=== PATIENT | female | born 1975 | race African-American/Black ===

== ENCOUNTER 2021-04-12 13:01 | Emergency (ER) | payer OTHER ==
[~2021-04-12] VITALS: Ht 160 cm; Wt 76.0 kg
[2021-04-12 13:03] VITALS: BP 142/88
[2021-04-12] MEDS ORDERED: LORA-249 PO (13:07)
== END 2021-04-12 14:53 | disposition left against medical advice (07) ==
LOC: ER 13:01
DX: R07.89 Other chest pain (principal); Z53.21 Procedure and treatment not carried out due to patient leaving prior to being seen by health care provider
CPT/HCPCS: 93005